=== PATIENT | female | born 1985 | race Caucasian/White ===

== ENCOUNTER → 2019-03-31 11:32 | Outpatient (CLI) | payer OTHER, SELFPAY ==
[2019-03-31 12:11] LABS: Add Manual Diff / Slide Review NO; Basophils Absolute Auto 0 /uL (0-100); Basophils Percent Auto 0.4 % (0-2); Eosinophils Absolute Auto 100 /uL (0-450); Eosinophils Percent Auto 2.1 % (2-4); Hematocrit 38.7 % (36-46); Hemoglobin 13.1 g/dL (12.0-16.0); Lymphocytes Absolute Auto 1700 /uL (1100-4500); Lymphocytes Percent Auto 23.9 % (25-40); Mean Corpuscular HGB Conc 33.8 % (30-36); Mean Corpuscular Hemoglobin 30.2 PG (26-34); Mean Corpuscular Volume 89.4 fL (80-100); Monocytes Absolute Auto 400 /uL (0-900); Monocytes Percent Auto 5.8 % (3-14); Neutrophils Absolute Auto 4800 /uL (1500-7000); Neutrophils Percent Auto 67.8 % (50-75); Platelet Count 237 X10^3/uL (150-400); Red Blood Cell Count 4.33 X10^6/uL (4.0-5.2); Red Cell Distribution Width 12.1 % (11.6-14.8); White Blood Cell Count 7.1 X10^3/uL (4.5-11.0)
[2019-03-31 12:44] LABS: Appearance Urine UA CLEAR; Bilirubin Urine UA NEGATIVE (NEGATIVE); Color Urine UA YELLOW; Glucose Urine UA NEGATIVE (Negative); Ketones Urine UA NEGATIVE (NEGATIVE); Leukocyte Esterase Urine UA NEGATIVE (NEGATIVE); Nitrite Urine UA NEGATIVE (Negative); Occult Blood Urine UA NEGATIVE (Negative); Protein Urine UA NEGATIVE (Negative); Specific Gravity Urine UA <=1.005 (1.000-1.035); Urobilinogen Urine UA 0.2 E.U./dL (0.2)
[2019-03-31 17:04] LABS: Hepatitis B Surface Antigen NEGATIVE s/c (NEGATIVE); Rubella Antibody IgG 38.2 IU/mL (>15)
[2019-03-31 17:35] LABS: HIV 1 & 2 Ab/Ag 4th Gen Combo NEGATIVE (NEGATIVE); Hep C Virus Ab w/Reflex Quant NEGATIVE s/c (NEGATIVE)
[2019-04-02 22:23] LABS: RPR Screen Nonreactive (Nonreactive)
== END ==
PROVIDERS: Visit Provider Family Medicine
DX: Z34.01 Encounter for supervision of normal first pregnancy, first trimester (principal)
CPT/HCPCS: 36415; 80055; 81003; 86787; 86803; 86850; 86900; 86901; 87086; 87389

== ENCOUNTER → 2019-04-17 14:54 | Outpatient (CLI) | payer OTHER, SELFPAY ==
--- NOTE | 2019-04-17 14:59 | DI.US.S_ITS ---
PROCEDURE: US PELVIC COMPLETE INDICATIONS: FIRST TRIMESTER BLEEDING TECHNIQUE: Real-time scanning was performed of the pelvic organs, with image documentation. Additional endovaginal scanning was necessary due to incomplete visualization of the adnexal and endometrial structures by transabdominal scanning. COMPARISON: None. FINDINGS: Transabdominal scanning: Limited scanning through the kidneys shows no hydronephrosis. No pathologic free abdominal or pelvic fluid. Endovaginal scanning: Uterus: Uterus is normal in size at 10.4 x 6.3 x 4.6 cm. The endometrium measures 9 mm in combined thickness. Increased vascularity can be seen adjacent to the endometrial stripe, yet not within the endometrial stripe itself. No findings of intrauterine can be seen. Ovaries: The right ovary measures 3.3 x 2.1 x 1.3 cm. The left ovary measures 3.2 x 1.5 x 1.8 cm. The ovaries have a normal sonographic appearance. No adnexal masses are seen. IMPRESSION: No findings of intrauterine are seen. Given the history, these imaging findings are most compatible with a completed spontaneous miscarriage. However, differential diagnosis would include an ectopic . Close clinical followup, with serial beta-hCG and serial ultrasound are recommended, as clinically appropriate. Note: Findings and recommendations relayed to Dr. Valdes via nurse Kimberly at 10:27 AM [place] time on April 18, 2019. Dr. Valdes will call back if there are any questions. Dictated by: Junaid Greer M.D. on 04/18/2019 at 9:21 Approved by: Junaid Greer M.D. on 04/18/2019 at 9:28
== END ==
PROVIDERS: Visit Provider Family Medicine
DX: O20.9 Hemorrhage in early pregnancy, unspecified (principal)
CPT/HCPCS: 76801; 76830; 76856

== ENCOUNTER → 2019-08-17 12:14 | Outpatient (CLI) | payer OTHER, MEDICAID, SELFPAY ==
--- NOTE | 2019-08-17 | DI.CT.S_ITS ---
PROCEDURE: CT ABDOMEN PELVIS WO/W CON INDICATIONS: Calculus of kidney TECHNIQUE: Optional 5 mm thick noncontrast images acquired from the diaphragm to the symphysis pubis. After the administration of intravenous contrast, 5 mm thick images acquired from the diaphragm to the symphysis pubis after a 10-minute delay. 2 mm thick coronal and sagittal reformats were then performed of the kidneys and ureters. For radiation dose reduction, the following was used: automated exposure control, adjustment of mA and/or kV according to patient size. COMPARISON: None. FINDINGS: Image quality: Excellent. Lung bases: Lung bases are clear. Heart size is normal. Urinary system: Mild left hydronephrosis and proximal hydroureter, presumably due to a 3 mm calculus in the proximal left ureter image 36/2. Additional left renal calculi measuring approximately 1 mm are seen for example image 36/2. A 5 mm right renal calculus on image 33/2, and additional 1 mm additional right renal calculi. No evidence of right sided urinary obstruction. There is left-sided and perinephric inflammatory fat stranding, and decreased left renal cortical enhancement on the postcontrast series which is highly suspicious for a left pyelonephritis. No associated abscess. Bladder grossly unremarkable. No bladder calculus seen. Other solid organs: Liver is normal in size and enhancement. Gallbladder negative. Biliary system is non dilated. Pancreas enhances normally. Spleen is normal in size and enhancement. No adrenal nodules. Peritoneum and bowel: Bowel loops demonstrate normal wall thickness and caliber. No free fluid or air. Normal appendix Nodes and vessels: No retroperitoneal or mesenteric adenopathy by size criteria. Aorta and inferior vena cava are normal in size. Abdominal wall: No ventral hernias. Pelvis: No pathologic free pelvic fluid. No inguinal hernias or adenopathy. Bones: No suspicious bony lesions. 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 IMPRESSION: Mild left sided urinary obstruction related to a 3 mm calculus in the proximal left ureter. Decreased cortical enhancement within the left kidney, compatible with left pyelonephritis. Associated left-sided perinephric inflammatory stranding. Findings were personally telephoned and discussed with Dr. Lozoya on 08/17/19 at the time of study interpretation Additional bilateral small renal calculi as discussed above. Dictated by: Og Kinsey M.D. on 08/17/2019 at 14:52 Approved by: Og Kinsey M.D. on 08/17/2019 at 15:57
== END ==
PROVIDERS: PCP Family Medicine; Referring Provider Family Medicine; Visit Provider Family Medicine
DX: N20.0 Calculus of kidney (principal)
CPT/HCPCS: 74178; Q9967

== ENCOUNTER → 2019-10-05 12:02 | Outpatient (CLI) | payer OTHER, MEDICAID, SELFPAY ==
--- NOTE | 2019-10-05 | DI.CT.S_ITS ---
PROCEDURE: CT ABDOMEN PELVIS WO CON INDICATIONS: Urinary tract infection, site not specified TECHNIQUE: Noncontrast 5 mm thick sections acquired from the diaphragms to the symphysis. 5 mm thick coronal and sagittal reformats were then performed. For radiation dose reduction, the following was used: automated exposure control, adjustment of mA and/or kV according to patient size. COMPARISON: [facility], CT, CT ABDOMEN PELVIS WO/W CON, 08/17/2019, 12:17. FINDINGS: Image quality: Excellent. Lung bases: Lung bases are clear. Heart size is normal. Urinary system: Right kidney: Unchanged 5 x 7 mm nonobstructing middle pole stone. No other stones. No hydronephrosis. Right ear: Unremarkable. Left kidney: No stone or hydronephrosis. Left ureter: Unremarkable. Bladder wall thickness is normal; no calcified bladder stones. Other solid organs: Liver is normal in size. Gallbladder is contracted, unremarkable. Pancreas is normal in contours. Spleen is normal in size. No adrenal nodules. Peritoneum and bowel: Unenhanced bowel loops demonstrate normal wall thickness and caliber. No free fluid or air. Nodes and vessels: No retroperitoneal or mesenteric adenopathy by size criteria. Aorta and inferior vena cava are normal in caliber. Abdominal wall: No ventral hernias. Pelvis: No free pelvic fluid. No inguinal hernias or adenopathy. Bones: No suspicious bony lesions. No vertebral body compression fractures. IMPRESSION: 1. Nonobstructing 5 x 7 mm right middle pole renal stone. 2. No ureteral stones. No hydronephrosis. Dictated by: Yoel Hutchins M.D. on 10/05/2019 at 12:29 Approved by: Yoel Hutchins M.D. on 10/05/2019 at 12:34
== END ==
PROVIDERS: PCP Family Medicine; Referring Provider Specialist; Visit Provider Specialist
DX: N39.0 Urinary tract infection, site not specified (principal); N20.0 Calculus of kidney
CPT/HCPCS: 74176

== ENCOUNTER → 2019-11-28 14:14 | Outpatient (CLI) | payer OTHER, MEDICAID, SELFPAY ==
--- NOTE | 2019-11-28 | DI.RAD.S_ITS ---
PROCEDURE: XR KUB INDICATIONS: KIDNEY STONES TECHNIQUE: One view of the abdomen acquired. COMPARISON: [facility], CT, CT ABDOMEN PELVIS WO CON, 10/05/2019, 12:03. FINDINGS: Surgical changes and devices: None. Bowel: Bowel gas pattern is normal. Soft tissues: Right nephrolithiasis measuring up to 5 mm radiographically. Presumed bilateral pelvic phleboliths. Bones: No suspicious bony lesions. Incidentally noted bilateral lumbosacral pseudoarthroses IMPRESSION: Unchanged right nephrolithiasis Dictated by: Og Kinsey M.D. on 11/28/2019 at 16:52 Approved by: Og Kinsey M.D. on 11/28/2019 at 16:54
[2019-11-28 14:26] LABS: Bacteria Urine None Seen; RBC Urine None Seen (0-5/HPF); WBC Urine None Seen (0-5/HPF)
[2019-11-28 15:20] LABS: Appearance Urine UA CLEAR; Bilirubin Urine UA NEGATIVE (NEGATIVE); Color Urine UA YELLOW; Glucose Urine UA NEGATIVE (Negative); Ketones Urine UA NEGATIVE (NEGATIVE); Leukocyte Esterase Urine UA NEGATIVE (NEGATIVE); Nitrite Urine UA NEGATIVE (Negative); Occult Blood Urine UA NEGATIVE (Negative); Protein Urine UA NEGATIVE (Negative); Specific Gravity Urine UA <=1.005 (1.000-1.035); Urobilinogen Urine UA 0.2 E.U./dL (0.2)
[2019-11-28 15:45] LABS: Culture Indicated Urine Cult Not Indicated; Squamous Epithelial Cell Urine 0-1 /HPF (0-5/HPF)
== END ==
PROVIDERS: PCP Family Medicine; Referring Provider Specialist; Visit Provider Specialist
DX: N39.0 Urinary tract infection, site not specified (principal); N20.0 Calculus of kidney
CPT/HCPCS: 74018; 81001

== ENCOUNTER → 2019-12-12 12:16 | Outpatient (CLI) | payer OTHER, MEDICAID, SELFPAY ==
[2019-12-13 20:41] LABS: COVID19 Sendout Not Detected (Not Detect)
== END ==
PROVIDERS: PCP Family Medicine; Visit Provider Physician Assistant
DX: Z01.812 Encounter for preprocedural laboratory examination (principal)
CPT/HCPCS: 87635

== ENCOUNTER 2019-12-15 08:51 | Day surgery (SDC) | payer OTHER, MEDICAID, SELFPAY ==
[2019-12-12 11:50] VITALS: BMI 32.8
[2019-12-15] MEDS: LACTATED RINGERS 1,000 ML 42 ML IV (09:23)
[2019-12-15 09:46] VITALS: BMI 32.8
[2019-12-15 09:53] VITALS: BMI 32.8
--- NOTE | 2019-12-15 10:13 | PM.PREOP ---
Pre-operative Note Interval Note History & Physical reviewed/Exam performed by Physician: Yes Changes to H&P: No H&P completed within 30 days and has changed as indicated here:: There are no changes to the history and physical examination scanned on file.
--- NOTE | 2019-12-15 10:15 | SUR.OPER ---
Supine on ESWL bed, head on pillow, arms secured on gel, legs uncrossed.
--- NOTE | 2019-12-15 10:25 | PM.OP.1 ---
Operative Date/Time/Diagnoses Date of procedure: 12/15/19 Time of procedure: 10:25 Pre-op diagnosis: Right nephrolithiasis Post-op diagnosis: same Procedure & Clinicians Procedure: Right extracorporeal shockwave lithotripsy (maximal power level 7.0 x 750 shocks). Same procedure as scheduled: Yes Indications: Right nephrolithiasis Surgeon: Bora Sellers Click Yes if Unassisted: Yes Anesthesia Type: General Operative Notes Findings: Triangular-shaped, 7 mm right upper pole calculi on the right. Closure Type: not applicable Specimen(s): none sent Estimated Blood Loss (mL): 0 Blood products transfused: none Tourniquet time (min): 0 Procedure in detail: The patient was positioned supine was administered general anesthesia. The above-described stone was then localized the xy and Z plane. Lithotripsy was then commenced at minimal power level for 200 shocks. A 2 minutes pause was then conducted. Lithotripsy was then commenced and gradually increased to a maximal power level 7.0. The index calculus and its fragments were really localized as needed throughout the case at approximately 500 shocks there was no radiographic evidence of stone or fragments remaining. Additional 250 shocks were delivered to the general area. The patient was then awakened, transferred to [facility], and transported to recovery in stable condition. Complications: none Post-operative Condition: stable Disposition: PACU Plan for aftercare: Discharge home
[2019-12-15 10:32] VITALS: BP 105/62; PULSE 67; RESP 12; TEMP 36.3; O2SAT 93
[2019-12-15 10:37] VITALS: BP 95/68; PULSE 65; RESP 12; O2SAT 93
[2019-12-15] MEDS: FUROSEMIDE 20 MG/2 ML VIAL IV (10:46)
[2019-12-15 10:49] VITALS: BP 113/75; PULSE 81; RESP 13; O2SAT 96
[2019-12-15 10:52] VITALS: BP 120/83; PULSE 86; RESP 10; O2SAT 96
== END 2019-12-15 11:05 | disposition home or self-care (01) ==
PROVIDERS: PCP Family Medicine; Referring Provider Specialist; Visit Provider Specialist
PROC: (CPT 50590; principal; 2019-12-15 09:15)
DX: N20.0 Calculus of kidney (principal); E66.9 Obesity, unspecified; F17.210 Nicotine dependence, cigarettes, uncomplicated; Z87.440 Personal history of urinary (tract) infections
CPT/HCPCS: 50590; J1940; J2250; J3010

== ENCOUNTER → 2020-02-12 09:16 | Outpatient (CLI) | payer OTHER, MEDICAID, SELFPAY ==
--- NOTE | 2020-02-12 09:19 | DI.RAD.S_ITS ---
PROCEDURE: XR KUB INDICATIONS: right nephrolithiasis TECHNIQUE: One view of the abdomen acquired. COMPARISON: Located [facility], , XR KUB, 11/28/2019, 14:29. FINDINGS: Surgical changes and devices: None. Bowel: Bowel gas pattern is normal. Previous 5 mm calcification projecting the right renal region is no longer visualized. No other radiographically visualized nephrolithiasis is seen. There are bilateral pelvic phleboliths, grossly unchanged. Bones: No suspicious bony lesions. IMPRESSION: Interval resolution of previous right nephrolithiasis since 11/28/19 Dictated by: Og Kinsey M.D. on 02/12/2020 at 10:36 Approved by: Og Kinsey M.D. on 02/12/2020 at 10:38
[2020-02-12 10:42] LABS: Calcium 9.6 mg/dL (8.4-10.2); Uric Acid 6.6 mg/dL (2.5-6.2)
[2020-02-13 07:09] LABS: Parathyroid Hormone Int 51 pg/mL (15-65)
== END ==
PROVIDERS: PCP Family Medicine; Referring Provider Specialist; Visit Provider Specialist
DX: N20.0 Calculus of kidney (principal)
CPT/HCPCS: 36415; 74018; 82310; 83970; 84550

== ENCOUNTER → 2020-03-14 13:38 | Outpatient (CLI) | payer OTHER, SELFPAY ==
[2020-04-03 10:18] LABS: Carbonate Apatite 40%; Magnesium ammon phos 60%; Stone Analysis Source NOT PROVIDED
[2020-04-03 10:19] LABS: PDF SEE EMR REFERENCE
== END ==
PROVIDERS: PCP Family Medicine; Visit Provider Specialist
DX: N20.0 Calculus of kidney (principal)
CPT/HCPCS: 82365